=== PATIENT | male | born 1945 ===

== ENCOUNTER 2017-07-29 19:28 | Inpatient (IN) | payer MEDICARE, MEDICAID ==
[2017-07-30 04:39] VITALS: BMI 22.6
[2017-07-30] MEDS ORDERED: Apap-Butalbital-Caffeine 325-50-40mg Tab PO PRN (06:09)
[2017-07-30] MEDS ORDERED: Naproxen 500 MG TAB PO PRN (06:17)
[2017-07-30] MEDS: Apap-Butalbital-Caffeine 325-50-40mg Tab PO PRN ×2 (08:25→15:35)
[2017-07-30] MEDS: Levothyroxine 100 MCG TAB PO SCH (08:27)
[2017-07-30] MEDS: GlipiZIDE 5 mg SR Tab PO SCH (08:27)
[2017-07-30] MEDS: Insulin Regular 100 units/ml SC SCH ×4 (08:28→21:28)
[2017-07-30] MEDS: Multivitamin With Minerals Tab PO SCH (08:29)
[2017-07-30 08:30] LABS: BASO % 0.3 % (0.0-2.0); EOS # 0.6 K/uL (0.0-0.7); EOS % 5.6 % (0.0-4.0); HEMATOCRIT 27.7 % (35.0-51.0); LYMPH # 1.5 K/uL (1.0-4.3); LYMPH % 13.7 % (20.0-40.0); MEAN CELL VOLUME 74.9 fl (80.0-94.0); MEAN CORPUSCULAR HEMOGLOBIN 24.7 pg (27.0-31.0); MEAN PLATELET VOLUME 8.5 fl (7.2-11.7); MONO # 1.2 K/uL (0.0-0.8); MONO % 11.6 % (0.0-10.0); NEUT # 7.4 K/uL (1.8-7.0); NEUT % 68.8 % (50.0-75.0); RED CELL DISTRIBUTION WIDTH 15.7 % (11.5-14.5); WHITE BLOOD COUNT 10.8 K/uL (4.8-10.8)
[2017-07-30] MEDS: Metoprolol Succinate 25 mg XL Tab PO SCH (08:30)
[2017-07-30 08:50] LABS: ALB/GLOB RATIO 1.3 (1.0-2.1); ALKALINE PHOSPHATASE 63 U/L (38-126); ALT/SGPT 30 U/L (21-72); AST/SGOT 18 U/L (17-59); BILIRUBIN,TOTAL 0.6 mg/dl (0.2-1.3); BLOOD UREA NITROGEN 15 mg/dl (9-20); CALCIUM 8.5 mg/dL (8.4-10.2); CARBON DIOXIDE 22 mmol/L (22-30); CHLORIDE 106 mmol/L (98-107); CHOLESTEROL 100 mg/dL (0-199); GFR AFRICAN-AMERICAN > 60; GLUCOSE,RANDOM 150 mg/dL (75-110); POTASSIUM 4.3 MMOL/L (3.6-5.0); SODIUM 139 mmol/l (132-148); TOTAL PROTEIN 6.5 G/DL (6.3-8.2)
[2017-07-30] MEDS ORDERED: Patient's Own Med (Multivitamins [Hexavitamin] 1 TAB) PO SCH (09:00)
[2017-07-30] MEDS ORDERED: Enoxaparin 80 mg Syringe SC SCH (09:00)
[2017-07-30] MEDS ORDERED: LOSARTAN 25 MG PO SCH (09:00)
[2017-07-30] MEDS ORDERED: METFORMIN 1000 MG PO SCH (09:00)
[2017-07-30 09:02] LABS: T4 7.71 ug/dl (5.5-11.0)
[2017-07-30 09:14] LABS: THYROID STIMULATING HORMONE 5.69 mIU/ML (0.46-4.68)
--- NOTE | 2017-07-30 09:15 | CP.PCM.HP ---
History of Present Illness - History of Present Illness History of Present Illness: A 72-year-old male with PMH DM, HTN, hypothyroidism initially presented to [facility] w/ complaints of syncopal episode. Patient was found to have hyperglycemia >400. Initial CT scan was negative. He had an MRI Brain that revealed acute left cerebellar infarctions involving almost entire cerebellar hemisphere with relative sparing of the deep superior cerebellar white matter. EKG: Echocardiogram was done, LV EF was normal. Chest CTA: negative. The patient is admitted for acute rehabilitation. He appears well this morning. 12 point ROS negative PMH: Uncontrolled Diabetes, HTN, HLD, CVA, Anemia Medications: reviewed Allergies: NKDA Social: No smoking, etoh, illicit drug use. Present on Admission - Present on Admission Any Indicators Present on Admission: Yes History of DVT/PE: No History of Uncontrolled Diabetes: Yes Past Patient History - Past Medical History & Family History Past Medical History?: Yes - Past Social History Smoking Status: Never Smoked - CARDIAC Hx Cardiac Disorders: Yes Hx Hypertension: Yes Other/Comment: - Dyslipidemia - PULMONARY Hx Respiratory Disorders: No - NEUROLOGICAL Hx Neurological Disorder: Yes HX Cerebrovascular Accident: Yes (07/23/2017) - HEENT Hx Cataracts: Yes (Bilateral (04/20/2013)) Other/Comment: - Had complaints of double vision - RENAL Hx Chronic Kidney Disease: No - ENDOCRINE/METABOLIC Hx Hypothyroidism: Yes - HEMATOLOGICAL/ONCOLOGICAL Hx AIDS: No Hx Human Immunodeficiency Virus (HIV): No - INTEGUMENTARY Hx Dermatological Problems: No - MUSCULOSKELETAL/RHEUMATOLOGICAL Hx Falls: No - GASTROINTESTINAL Hx Gastrointestinal Disorders: No - GENITOURINARY/GYNECOLOGICAL Hx Genitourinary Disorders: Yes (Phimosis, Circumcision 05/03/2015) - PSYCHIATRIC Hx Substance Use: No - SURGICAL HISTORY Hx Surgeries: Yes Hx Cataract Extraction: Yes ((Bilateral: 04/20/2013)) Other/Comment: - Cir - ANESTHESIA Hx Anesthesia: Yes Hx Anesthesia Reactions: No Hx Malignant Hyperthermia: No Has any member of the family had a problem w/ anesthesia?: No Meds Allergies/Adverse Reactions: Allergies Allergy/AdvReac Type Severity Reaction Status Date / Time No Known Allergies Allergy Verified 07/30/17 04:39 Physical Exam - Constitutional Appears: Well, Non-toxic, No Acute Distress - Head Exam Head Exam: ATRAUMATIC, NORMAL INSPECTION, NORMOCEPHALIC - Eye Exam Eye Exam: EOMI, Normal appearance, PERRL - Respiratory Exam Respiratory Exam: NORMAL BREATHING PATTERN - Cardiovascular Exam Cardiovascular Exam: REGULAR RHYTHM - Extremities Exam Extremities exam: Positive for: normal inspection. Negative for: pedal edema, tenderness - Neurological Exam Neurological exam: Alert, CN II-XII Intact, Oriented x3 Additional comments: gait not assessed - Expanded Neurological Exam Expanded Neuro motor strength exam: Left Upper Extremity: 5, Right Upper Extremity: 5, Left Lower Extremity: 5, Right Lower Extremity: 5 Coma Scale Eye Opening: SPONTANEOUS Coma Scale Motor Response: OBEYS COMMANDS Coma Scale Verbal: Oriented Coma Scale Total: 15 - Psychiatric Exam Psychiatric exam: Normal Affect, Normal Mood - Skin Skin Exam: Dry, Intact, Normal Color, Warm Results - Vital Signs Recent Vital Signs: Last Vital Signs Temp 96.6 F L 07/30/17 07:47 Pulse 69 07/30/17 08:30 Resp 20 07/30/17 07:47 BP 140/72 07/30/17 08:30 Pulse Ox 98 07/30/17 07:47 - Labs Result Diagrams: 07/30/17 08:10 07/30/17 08:10 Labs: Laboratory Results - last 24 hr 07/30/17 07/30/17 08:10 08:10 WBC 10.8 RBC 3.70 L Hgb 9.1 L Hct 27.7 L MCV 74.9 L MCH 24.7 L MCHC 33.0 RDW 15.7 H Plt Count 325 MPV 8.5 Neut % (Auto) 68.8 Lymph % (Auto) 13.7 L [place] % (Auto) 11.6 H Eos % (Auto) 5.6 H Baso % (Auto) 0.3 Neut # 7.4 H Lymph # 1.5 [place] # 1.2 H Eos # 0.6 Baso # 0.0 Sodium 139 Potassium 4.3 Chloride 106 Carbon Dioxide 22 Anion Gap 15 BUN 15 Creatinine 1.1 Est GFR ( Amer) > 60 Est GFR (Non-Af Amer) > 60 Random Glucose 150 H Calcium 8.5 Total Bilirubin 0.6 AST 18 ALT 30 Alkaline Phosphatase 63 Total Protein 6.5 Albumin 3.7 Globulin 2.8 Albumin/Globulin Ratio 1.3 Triglycerides 205 H Cholesterol 100 LDL Cholesterol Direct 41 HDL Cholesterol 25 L Thyroxine (T4) 7.71 Total T3 0.520 L TSH 3rd Generation 5.69 H Assessment & Plan (1) CVA (cerebral vascular accident) Assessment and Plan: 72 year old male admitted for rehabilitation after suffering CVA, left cerebellar infarction. Neurology recommendations appreciated. on ASA, Plavix, will start Lipitor 80mg. PT/OT as per physiatry. Status: Acute (2) HTN (hypertension) Assessment and Plan: mostly controlled, d/c losartan 25mg start losartan 50mg c/w norvasc 10mg, metoprolol 25mg Status: Acute (3) Insulin dependent type 2 diabetes mellitus Assessment and Plan: on 30 units glargine qhs, metformin 1000mg bid, glucoctrol xl 5 mg sliding scale for coverage if remains hyperglycemic will need to increase glargine Status: Acute (4) HLD (hyperlipidemia) Assessment and Plan: lipitor 80mg Status: Acute (5) Microcytic anemia Assessment and Plan: chronic, patients initial hg was 9. has been stable. iron studies ordered Vitamin b12 WNL Folate pending TSH elevated Status: Acute
--- NOTE | 2017-07-30 12:03 | CP.PCM.CON ---
History of Present Illness - History of Present Illness History of Present Illness: I was asked to see patient by Dr Fried. Patient is a 72 year old male with PMH HTN, who presents for rehab. The patient was previously admitted with a CVA. The patient was noted to have lack of coordination. He was admitted to [facility] and now transferred. He denies chest pain. He appears comfortable. Review of Systems - Constitutional Constitutional: absent: As Per HPI, Anorexia, Chills, Daytime Sleepiness, Excessive Sweating, Fatigue, Fever, Frequent Falls, Headache, Increased Appetite , Lethargy, Malaise, Night Sweats, Snoring, Sleep Apnea, Weight Gain, Weight Loss, Weakness, Other - EENT Eyes: absent: As Per HPI, Blind Spots, Blurred Vision, Change in Vision, Decreased Night Vision, Diplopia, Discharge, Dry Eye, Exophthalmos, Floaters, Irritation, Itchy Eyes, Loss of Peripheral Vision, Pain, Photophobia, Requires Corrective Lenses, Sees Flashes, Spots in Vision, Tunnel Vision, Other Visual Disturbances, Loss of Vision, Other Nose/Mouth/Throat: absent: As Per HPI, Epistaxis, Nasal Congestion, Nasal Discharge, Nasal Obstruction, Nasal Trauma, Nose Pain, Post Nasal Drip, Sinus Pain, Sinus Pressure, Bleeding Gums, Change in Voice, Dental Pain, Dry Mouth, Dysphagia, Halitosis, Hoarsness, Lip Swelling, Mouth Lesions, Mouth Pain, Odynophagia, Sore Throat, Throat Swelling, Tongue Swelling, Facial Pain, Neck Pain, Neck Mass, Other - Cardiovascular Cardiovascular: absent: As Per HPI, Acrocyanosis, Chest Pain, Chest Pain at Rest , Chest Pain with Activity, Claudication, Diaphoresis, Dyspnea, Dyspnea on Exertion, Edema, Irregular Heart Rhythm, Pain Radiating to Arm/Neck/Jaw, Leg Edema, Leg Ulcers, Lightheadedness, Orthopnea, Palpitations, Paroxysmal Nocturnal Dyspnea, Pedal Edema, Radiating Pain, Rapid Heart Rate, Slow Heart Rate, Syncope, Other - Respiratory Respiratory: absent: As Per HPI, Cough, Dyspnea, Hemoptysis, Dyspnea on Exertion , Wheezing, Snoring, Stridor, Pain on Inspiration, Chest Congestion, Excessive Mucous Production, Change in Mucous Color, Pain with Coughing, Other - Gastrointestinal Gastrointestinal: absent: As Per HPI, Abdominal Pain, Belching, Bloating, Change in Bowel Habits, Change in Stool Character, Coffee Ground Emesis, Constipation, Cramping, Diarrhea, Dyspepsia, Dysphagia, Early Satiety, Excessive Flatus, Fecal Incontinence, Heartburn, Hematemesis, Hematochezia, Loose Stools, Melena, Nausea, Odynophagia, Temesmus, Vomiting, Other - Genitourinary Genitourinary: absent: As Per HPI, Change in Urinary Stream, Difficulty Urinating, Dysuria, Flank Pain, Hematuria, Pyuria, Nocturia, Urinary Incontinence, Urinary Frequency, Urinary Hesitance, Urinary Urgency, Voiding Freq/Small Amts, Freq UTI, Hx Renal/Bladder Calculi, Hx /Renal Surgery, Bladder Distension, Other - Musculoskeletal Musculoskeletal: absent: As Per HPI, Abnormal Gait, Arthralgias, Atrophy, Back Pain, Deformity, Joint Swelling, Limited Range of Motion, Loss of Height, Muscle Cramps, Muscle Weakness, Myalgias, Neck Pain, Numbness, Radiating Pain into Limb, Stiffness, Tingling, Other - Integumentary Integumentary: absent: As Per HPI, Acne, Alopecia, Bleeding Lesions, Change in Hair, Change in Nails, Change in Pigmentation, Changing Lesions, Dry Skin, Erythema, Furuncle, Hirsutism, Lesions, New Lesions, Non-Healing Lesions, Photosensitivity, Pruritus, Rash, Skin Pain, Skin Ulcer, Sores, Striae, Swelling , Unusual Bruising, Wounds, Jaundice, Other - Neurological Neurological: Lack of Coordination - Psychiatric Psychiatric: absent: As Per HPI, Abnormal Sleep Pattern, Anhedonia, Anxiety, Auditory Hallucinations, Behavioral Changes, Change in Appetite, Change in Libido, Confusion, Depression, Difficulty Concentrating, Hallucinations, Homicidal Ideation, Hopelessness, Irritability, Memory Loss, Mood Swings, Panic Attacks, Paranoia, Suicidal Ideation, Visual Hallucinations, Tactile Hallucinations, Other - Endocrine Endocrine: absent: As Per HPI, Change in Body Appearance, Change in Libido, Cold Intolorance, Deepening of Voice, Excessive Sweating, Fatigue, Flushing, Heat Intolorance, Increase in Ring/Shoe/Hat Size, Palpitations, Polydipsia, Polyphagia, Polyuria, Other - Hematologic/Lymphatic Hematologic: absent: As Per HPI, Easy Bleeding, Easy Bruising, Lymphadenopathy, Other Past Patient History - Past Medical History & Family History Past Medical History?: Yes - Past Social History Smoking Status: Never Smoked - CARDIAC Hx Cardiac Disorders: Yes Hx Hypertension: Yes Other/Comment: - Dyslipidemia - PULMONARY Hx Respiratory Disorders: No - NEUROLOGICAL Hx Neurological Disorder: Yes HX Cerebrovascular Accident: Yes (07/23/2017) - HEENT Hx Cataracts: Yes (Bilateral (04/20/2013)) Other/Comment: - Had complaints of double vision - RENAL Hx Chronic Kidney Disease: No - ENDOCRINE/METABOLIC Hx Hypothyroidism: Yes - HEMATOLOGICAL/ONCOLOGICAL Hx AIDS: No Hx Human Immunodeficiency Virus (HIV): No - INTEGUMENTARY Hx Dermatological Problems: No - MUSCULOSKELETAL/RHEUMATOLOGICAL Hx Falls: No - GASTROINTESTINAL Hx Gastrointestinal Disorders: No - GENITOURINARY/GYNECOLOGICAL Hx Genitourinary Disorders: Yes (Phimosis, Circumcision 05/03/2015) - PSYCHIATRIC Hx Substance Use: No - SURGICAL HISTORY Hx Surgeries: Yes Hx Cataract Extraction: Yes ((Bilateral: 04/20/2013)) Other/Comment: - Cir - ANESTHESIA Hx Anesthesia: Yes Hx Anesthesia Reactions: No Hx Malignant Hyperthermia: No Has any member of the family had a problem w/ anesthesia?: No Meds Allergies/Adverse Reactions: Allergies Allergy/AdvReac Type Severity Reaction Status Date / Time No Known Allergies Allergy Verified 07/30/17 04:39 - Medications Medications: Current Medications Acetaminophen/Butalbital/Caffeine (Fioricet) 1 tab PO Q4 PRN PRN Reason: Pain (4-10) Last Admin: 07/30/17 08:25 Dose: 1 tab Alendronate Sodium (Fosamax) 70 mg PO QWK [facility] Amlodipine Besylate (Norvasc) 10 mg PO DAILY [facility] Last Admin: 07/30/17 08:30 Dose: 10 mg Aspirin (Aspirin Chewable) 81 mg PO DAILY [facility] Last Admin: 07/30/17 08:29 Dose: 81 mg Atorvastatin Calcium (Lipitor) 40 mg PO HS [facility] Clopidogrel Bisulfate (Plavix) 75 mg PO DAILY [facility] Last Admin: 07/30/17 08:29 Dose: 75 mg Enoxaparin Sodium (Lovenox) 70 mg SC Q12 [facility] PRN Reason: Protocol Famotidine (Pepcid) 20 mg PO BID [facility] Last Admin: 07/30/17 08:29 Dose: 20 mg Glipizide (Glucotrol Xl) 5 mg PO BRK [facility] Last Admin: 07/30/17 08:27 Dose: 5 mg Insulin Detemir (Levemir) 30 units SC [facility] Insulin Human Regular (Humulin R) 0 units SC [facility] PRN Reason: Protocol Last Admin: 07/30/17 08:28 Dose: 1 unit Levothyroxine Sodium (Synthroid) 100 mcg PO DAILY@0630 [facility] Last Admin: 07/30/17 08:27 Dose: 100 mcg Losartan Potassium (Cozaar) 25 mg PO DAILY [facility] Last Admin: 07/30/17 08:29 Dose: 25 mg Meclizine HCl (Antivert) 25 mg PO TID [facility] Last Admin: 07/30/17 08:27 Dose: 25 mg Metformin HCl (Glucophage) 1,000 mg PO BID [facility] Last Admin: 07/30/17 08:29 Dose: 1,000 mg Metoprolol Succinate (Toprol Xl) 25 mg PO DAILY [facility] Last Admin: 07/30/17 08:30 Dose: 25 mg Multivitamins/Minerals (Therapeutic-M Tab) 1 tab PO DAILY [facility] Last Admin: 07/30/17 08:29 Dose: 1 tab Physical Exam - Constitutional Appears: Non-toxic - Head Exam Head Exam: NORMAL INSPECTION - Eye Exam Eye Exam: Normal appearance - ENT Exam ENT Exam: Mucous Membranes Moist - Neck Exam Neck exam: Positive for: Full Rom - Respiratory Exam Respiratory Exam: NORMAL BREATHING PATTERN - Cardiovascular Exam Cardiovascular Exam: REGULAR RHYTHM - GI/Abdominal Exam GI & Abdominal Exam: Normal Bowel Sounds - Rectal Exam Rectal Exam: Deferred - Extremities Exam Extremities exam: Negative for: pedal edema - Back Exam Back exam: NORMAL INSPECTION - Neurological Exam Neurological exam: Alert, Oriented x3 - Psychiatric Exam Psychiatric exam: Normal Affect - Skin Skin Exam: Normal Color Results - Vital Signs Recent Vital Signs: Last Vital Signs Temp 96.6 F L 07/30/17 07:47 Pulse 69 07/30/17 08:30 Resp 20 07/30/17 07:47 BP 140/72 07/30/17 08:30 Pulse Ox 98 07/30/17 07:47 - Labs Result Diagrams: 07/30/17 08:10 07/30/17 08:10 Labs: Laboratory Results - last 24 hr 07/30/17 07/30/17 07/30/17 05:29 08:10 08:10 WBC 10.8 RBC 3.70 L Hgb 9.1 L Hct 27.7 L MCV 74.9 L MCH 24.7 L MCHC 33.0 RDW 15.7 H Plt Count 325 MPV 8.5 Neut % (Auto) 68.8 Lymph % (Auto) 13.7 L [place] % (Auto) 11.6 H Eos % (Auto) 5.6 H Baso % (Auto) 0.3 Neut # 7.4 H Lymph # 1.5 [place] # 1.2 H Eos # 0.6 Baso # 0.0 Sodium 139 Potassium 4.3 Chloride 106 Carbon Dioxide 22 Anion Gap 15 BUN 15 Creatinine 1.1 Est GFR ( Amer) > 60 Est GFR (Non-Af Amer) > 60 POC Glucose (mg/dL) 160 H Random Glucose 150 H Calcium 8.5 Total Bilirubin 0.6 AST 18 ALT 30 Alkaline Phosphatase 63 Total Protein 6.5 Albumin 3.7 Globulin 2.8 Albumin/Globulin Ratio 1.3 Triglycerides 205 H Cholesterol 100 LDL Cholesterol Direct 41 HDL Cholesterol 25 L Vitamin B12 548 Thyroxine (T4) 7.71 Total T3 0.520 L TSH 3rd Generation 5.69 H 07/30/17 11:08 WBC RBC Hgb Hct MCV MCH MCHC RDW Plt Count MPV Neut % (Auto) Lymph % (Auto) [place] % (Auto) Eos % (Auto) Baso % (Auto) Neut # Lymph # [place] # Eos # Baso # Sodium Potassium Chloride Carbon Dioxide Anion Gap BUN Creatinine Est GFR ( Amer) Est GFR (Non-Af Amer) POC Glucose (mg/dL) 264 H Random Glucose Calcium Total Bilirubin AST ALT Alkaline Phosphatase Total Protein Albumin Globulin Albumin/Globulin Ratio Triglycerides Cholesterol LDL Cholesterol Direct HDL Cholesterol Vitamin B12 Thyroxine (T4) Total T3 TSH 3rd Generation - EKG Data EKG shows normal: Sinus rhythm - EKG Data When Compared to Previous EKG: Significant Changes Assessment & Plan (1) CVA (cerebral vascular accident) Assessment and Plan: patient will need continued physical therapy. recommend statin therapy. ASA. awilda follow up. no signs of afib. Status: Acute (2) Syncope Status: Acute
[2017-07-30] MEDS: Enoxaparin 80 mg Syringe SC SCH ×2 (12:19→21:18)
--- NOTE | 2017-07-30 15:32 | CON ---
NEUROLOGY CONSULTATION DATE: 07/30/2017 HISTORY OF PRESENT ILLNESS: This is a 72-year-old man with history of type 2 diabetes mellitus, uncontrolled; hypertension and hypothyroidism who initially came into [facility] on 07/23/2017, where he was shopping at [facility] and had a syncopal episode and found to have Accu-Chek of more than 400 on his blood sugar. Initial CAT scan showed no acute intracranial abnormality and started to have diffuse pressure headaches with blurry vision; therefore, had an MRI of the brain, which showed an acute left cerebellar infarct, which is likely secondary to diffuse atherosclerotic disease with uncontrolled diabetes and hypertension. He had some mild dysmetria and his headaches got better with Fioricet p.r.n. He is on aspirin 81, Plavix 75, and Lipitor 80. He is currently in [facility] for acute rehab for physical and occupational therapy. PAST MEDICAL HISTORY: Type 2 diabetes mellitus, hypertension and dyslipidemia. REVIEW OF SYSTEMS: A 14-point review of systems is negative except in the HPI. ALLERGIES: NO KNOWN DRUG ALLERGY. SOCIAL HISTORY: No illicit drug use, smoking, or ETOH abuse. FAMILY HISTORY: Noncontributory. MEDICATIONS: Reviewed by nurse's reconciliation sheet. PHYSICAL EXAMINATION VITAL SIGNS: Temperature 96.6, pulse rate of 69, blood pressure 140/72, respiratory rate of 20, oxygen saturation 98% by room air. GENERAL: The patient is sitting up in bed, in no acute distress. HEENT: Head is atraumatic and normocephalic. PERRLA. Extraocular muscles intact. NECK: Supple. No JVD. No adenopathy noted. LUNGS: Clear to auscultation. No adventitious sounds. HEART: S1, S2. Normal rate and rhythm. No murmurs, rubs, or gallops. ABDOMEN: Soft, nontender, nondistended. Bowel sounds are present. EXTREMITIES: No clubbing, no cyanosis. Peripheral pulses 2+ felt bilaterally. NEUROLOGIC: The patient is alert and oriented to person, place, month, and year. Speech is fluent without any errors. Cranial nerves II through XII are intact. Motor exam: Moves all extremities equally. Normal toes. No pronator drift seen. Sensory exam: Decreased light touch and pinprick up to the calves bilaterally. Decreased vibration at the toes. DTRs are 2+ throughout, 1 at the ankles. Coordination: Mild dysmetria on the left upper extremities. [id number] otherwise intact. Gait is deferred for now. LABORATORY DATA: Sodium is 139, potassium 4.3, chloride of 106, carbon dioxide 22, BUN of 15, creatinine 1.1 and random glucose of 150 and his B12 on his last hospital visit which shows 548. ASSESSMENT AND PLAN: This is a 72-year-old [place] male with past medical history of type 2 diabetes mellitus, uncontrolled; dyslipidemia, hypertension, and had a syncopal episode on 07/23/2017, when he was brought to [facility] and developed pressure headaches and blurry vision. Had an MRI of the brain, which showed acute left cerebellar infarct with mass effect from diffuse atherosclerotic disease such as uncontrolled hypertension, diabetes and dyslipidemia and he had a syncopal episode which is most likely vasovagal at that time, so far there is no features of any atrial fibrillation on his EKG. He is currently stable, he is at [facility] for acute rehab for physical therapy and muscle strengthening exercise. At this time, we recommend: 1. Keep blood pressure between 120 to 130 mmHg. 2. Aspirin 81 mg, Plavix 75 mg in addition to Lipitor 80 mg p.o. daily for stroke prevention. 3. Acute rehab with physical and occupational, speech therapy for deconditioned state, balance and coordination and muscle exercises. 4. Continue with current present medical management and get hemoglobin A1c and keep blood sugars between 140 to 180 and diabetic diet. Thank you for this consult. Nasim Watts MD
--- NOTE | 2017-07-30 18:00 | PCM.OPOC ---
Physiatry Overall Plan of Care - Overall Plan of Care Estimated Length of Stay in Weeks: 3 Rehab Impairment: Mobility, Gait, Cognition, Speech, Balance, Coordination Etiologic Diagnosis: Cerebrovascular Accident Rehab/Medical Prognosis: Fair - Anticipated Interventions Physical Therapy:: Yes Occupational Therapy:: Yes Speech Therapy:: Yes Recreational Therapy:: Yes - Therapy Goals Bed Mobility: Supervision Ambulation: Supervision Functional Positional Changes:: Supervision - Discharge Plan Discharge Destination: Home
--- NOTE | 2017-07-30 18:03 | CP.PCM.CON ---
History of Present Illness - History of Present Illness History of Present Illness: Dr Mcdaniels PMR consultation on Azeem Jenkins, born 1945, who has been admitted to [facility] for acute inpatient rehabilitation after a syncopal event with work up revealing a cerebellar infarct. Decreased coordination and function. Review of Systems - Constitutional Constitutional: absent: Anorexia, Chills - EENT Eyes: absent: Change in Vision Ears: absent: Decreased Hearing, Ear Discharge Nose/Mouth/Throat: absent: Nasal Congestion - Cardiovascular Cardiovascular: absent: Chest Pain - Respiratory Respiratory: absent: Cough, Dyspnea - Gastrointestinal Gastrointestinal: absent: Belching, Constipation - Musculoskeletal Musculoskeletal: absent: Back Pain - Neurological Neurological: Abnormal Gait, Abnormal Speech. absent: Abnormal Hearing, Abnormal Movements Past Patient History - Past Medical History & Family History Past Medical History?: Yes - Past Social History Smoking Status: Never Smoked Alcohol: None Drugs: Denies Home Situation {Lives}: With Family - CARDIAC Hx Hypertension: Yes - PULMONARY Hx Respiratory Disorders: No - NEUROLOGICAL Hx Neurological Disorder: Yes HX Cerebrovascular Accident: Yes (07/23/2017) - HEENT Hx Cataracts: Yes (Bilateral (04/20/2013)) Other/Comment: - Had complaints of double vision - RENAL Hx Chronic Kidney Disease: No - ENDOCRINE/METABOLIC Hx Diabetes Mellitus Type 2: Yes - HEMATOLOGICAL/ONCOLOGICAL Hx AIDS: No Hx Human Immunodeficiency Virus (HIV): No - INTEGUMENTARY Hx Dermatological Problems: No - MUSCULOSKELETAL/RHEUMATOLOGICAL Hx Falls: No - GASTROINTESTINAL Hx Gastrointestinal Disorders: No - GENITOURINARY/GYNECOLOGICAL Hx Genitourinary Disorders: Yes (Phimosis, Circumcision 05/03/2015) - PSYCHIATRIC Hx Substance Use: No - SURGICAL HISTORY Hx Surgeries: Yes Hx Cataract Extraction: Yes ((Bilateral: 04/20/2013)) Other/Comment: - Cir - ANESTHESIA Hx Anesthesia: Yes Hx Anesthesia Reactions: No Hx Malignant Hyperthermia: No Has any member of the family had a problem w/ anesthesia?: No Meds Allergies/Adverse Reactions: Allergies Allergy/AdvReac Type Severity Reaction Status Date / Time No Known Allergies Allergy Verified 07/30/17 04:39 - Medications Medications: Current Medications Acetaminophen (Tylenol 325mg Tab) 650 mg PO Q6 PRN PRN Reason: Ear Pain. Acetaminophen/Butalbital/Caffeine (Fioricet) 1 tab PO Q4 PRN PRN Reason: Pain (4-10) Last Admin: 07/30/17 15:35 Dose: 1 tab Alendronate Sodium (Fosamax) 70 mg PO QWK [facility] Amlodipine Besylate (Norvasc) 10 mg PO DAILY [facility] Last Admin: 07/30/17 08:30 Dose: 10 mg Aspirin (Aspirin Chewable) 81 mg PO DAILY [facility] Last Admin: 07/30/17 08:29 Dose: 81 mg Atorvastatin Calcium (Lipitor) 80 mg PO DAILY [facility] Clopidogrel Bisulfate (Plavix) 75 mg PO DAILY [facility] Last Admin: 07/30/17 08:29 Dose: 75 mg Enoxaparin Sodium (Lovenox) 70 mg SC Q12 [facility] PRN Reason: Protocol Last Admin: 07/30/17 12:19 Dose: 70 mg Famotidine (Pepcid) 20 mg PO BID [facility] Last Admin: 07/30/17 17:06 Dose: 20 mg Glipizide (Glucotrol Xl) 5 mg PO BRK [facility] Last Admin: 07/30/17 08:27 Dose: 5 mg Insulin Detemir (Levemir) 30 units SC HS [facility] Insulin Human Regular (Humulin R) 0 units SC [facility] PRN Reason: Protocol Last Admin: 07/30/17 17:06 Dose: 1 unit Levothyroxine Sodium (Synthroid) 100 mcg PO DAILY@0630 [facility] Last Admin: 07/30/17 08:27 Dose: 100 mcg Losartan Potassium (Cozaar) 50 mg PO DAILY [facility] Meclizine HCl (Antivert) 25 mg PO TID [facility] Last Admin: 07/30/17 17:06 Dose: 25 mg Metformin HCl (Glucophage) 1,000 mg PO BID [facility] Last Admin: 07/30/17 17:06 Dose: 1,000 mg Metoprolol Succinate (Toprol Xl) 25 mg PO DAILY [facility] Last Admin: 07/30/17 08:30 Dose: 25 mg Multivitamins/Minerals (Therapeutic-M Tab) 1 tab PO DAILY [facility] Last Admin: 07/30/17 08:29 Dose: 1 tab Physical Exam - Constitutional Appears: Well, Non-toxic, No Acute Distress - Head Exam Head Exam: ATRAUMATIC, NORMAL INSPECTION, NORMOCEPHALIC - Eye Exam Eye Exam: EOMI - ENT Exam ENT Exam: Mucous Membranes Moist - Respiratory Exam Respiratory Exam: NORMAL BREATHING PATTERN - Cardiovascular Exam Cardiovascular Exam: REGULAR RHYTHM - GI/Abdominal Exam GI & Abdominal Exam: Normal Bowel Sounds - Extremities Exam Extremities exam: Negative for: calf tenderness - Neurological Exam Neurological exam: Alert - Psychiatric Exam Psychiatric exam: Normal Affect, Normal Mood - Skin Skin Exam: Normal Color Results - Vital Signs Recent Vital Signs: Last Vital Signs Temp 96.6 F L 07/30/17 07:47 Pulse 83 07/30/17 09:10 Resp 20 07/30/17 07:47 BP 118/69 07/30/17 09:10 Pulse Ox 98 07/30/17 07:47 - Labs Result Diagrams: 07/30/17 08:10 07/30/17 08:10 Labs: Laboratory Results - last 24 hr 07/30/17 07/30/17 07/30/17 05:29 08:10 08:10 WBC 10.8 RBC 3.70 L Hgb 9.1 L Hct 27.7 L MCV 74.9 L MCH 24.7 L MCHC 33.0 RDW 15.7 H Plt Count 325 MPV 8.5 Neut % (Auto) 68.8 Lymph % (Auto) 13.7 L Daggett % (Auto) 11.6 H Eos % (Auto) 5.6 H Baso % (Auto) 0.3 Neut # 7.4 H Lymph # 1.5 Daggett # 1.2 H Eos # 0.6 Baso # 0.0 Sodium 139 Potassium 4.3 Chloride 106 Carbon Dioxide 22 Anion Gap 15 BUN 15 Creatinine 1.1 Est GFR ( Amer) > 60 Est GFR (Non-Af Amer) > 60 POC Glucose (mg/dL) 160 H Random Glucose 150 H Calcium 8.5 Total Bilirubin 0.6 AST 18 ALT 30 Alkaline Phosphatase 63 Total Protein 6.5 Albumin 3.7 Globulin 2.8 Albumin/Globulin Ratio 1.3 Triglycerides 205 H Cholesterol 100 LDL Cholesterol Direct 41 HDL Cholesterol 25 L Vitamin B12 548 Thyroxine (T4) 7.71 Total T3 0.520 L TSH 3rd Generation 5.69 H 07/30/17 07/30/17 11:08 15:50 WBC RBC Hgb Hct MCV MCH MCHC RDW Plt Count MPV Neut % (Auto) Lymph % (Auto) Daggett % (Auto) Eos % (Auto) Baso % (Auto) Neut # Lymph # Daggett # Eos # Baso # Sodium Potassium Chloride Carbon Dioxide Anion Gap BUN Creatinine Est GFR ( Amer) Est GFR (Non-Af Amer) POC Glucose (mg/dL) 264 H 198 H Random Glucose Calcium Total Bilirubin AST ALT Alkaline Phosphatase Total Protein Albumin Globulin Albumin/Globulin Ratio Triglycerides Cholesterol LDL Cholesterol Direct HDL Cholesterol Vitamin B12 Thyroxine (T4) Total T3 TSH 3rd Generation Assessment & Plan - Assessment and Plan (Free Text) Assessment: 72 year old male right hand dominant with acute cerebellar CVA PT/OT to continue to help increase functional independence Team conference for d/c planning Pain: controlled Vascular: no evidence of DVT GI: No evidence of constipation or diarrhea Patient is an excellent acute rehabilitation candidate and will have focused speech PT, OT and recreational therapy to help facilitate a safe and appropriate d/c plan Impairment code 01.2
[2017-07-30] MEDS: Insulin Detemir 100 Units/ml Inj SC SCH (21:22)
--- NOTE | 2017-07-31 00:42 | CP.PCM.PN ---
Subjective - Date & Time of Evaluation Date of Evaluation: 07/31/17 Time of Evaluation: 00:45 - Subjective Subjective: Called to eval patient because he had been heard getting up and then found on the floor by the nurse soon after. Patient did not have LOC. There do not appear to be any new bruising/bleeding although LLE has some injuries from prior fall. Patient himself denies any pain/discomfort. VSS. No acute neuro deficits. Will observe patient for now. No further workup ordered. Objective - Vital Signs/Intake and Output Vital Signs (last 24 hours): Temp Pulse Resp BP Pulse Ox 97.9 F 71 20 139/76 98 07/30/17 19:47 07/30/17 19:47 07/30/17 19:47 07/30/17 19:47 07/30/17 19:47 - Medications Medications: Current Medications Acetaminophen (Tylenol 325mg Tab) 650 mg PO Q6 PRN PRN Reason: Ear Pain. Acetaminophen/Butalbital/Caffeine (Fioricet) 1 tab PO Q4 PRN PRN Reason: Pain (4-10) Last Admin: 07/30/17 15:35 Dose: 1 tab Alendronate Sodium (Fosamax) 70 mg PO QWK [facility]PLACED [facility] Amlodipine Besylate (Norvasc) 10 mg PO DAILY [facility] Last Admin: 07/30/17 08:30 Dose: 10 mg Aspirin (Aspirin Chewable) 81 mg PO DAILY [facility] Last Admin: 07/30/17 08:29 Dose: 81 mg Atorvastatin Calcium (Lipitor) 80 mg PO DAILY [facility] Clopidogrel Bisulfate (Plavix) 75 mg PO DAILY [facility] Last Admin: 07/30/17 08:29 Dose: 75 mg Enoxaparin Sodium (Lovenox) 70 mg SC Q12 [facility] PRN Reason: Protocol Last Admin: 07/30/17 21:18 Dose: 70 mg Famotidine (Pepcid) 20 mg PO BID [facility] Last Admin: 07/30/17 17:06 Dose: 20 mg Glipizide (Glucotrol Xl) 5 mg PO BRK [facility] Last Admin: 07/30/17 08:27 Dose: 5 mg Insulin Detemir (Levemir) 30 units SC HS [facility]PL[facility] Last Admin: 07/30/17 21:22 Dose: 30 units Insulin Human Regular (Humulin R) 0 units SC ACHS REPLACED BY [facility] PRN Reason: Protocol Last Admin: 07/30/17 21:28 Dose: Not Given Levothyroxine Sodium (Synthroid) 100 mcg PO DAILY@0630 [facility] Last Admin: 07/30/17 08:27 Dose: 100 mcg Losartan Potassium (Cozaar) 50 mg PO DAILY [facility] Meclizine HCl (Antivert) 25 mg PO TID [facility] Last Admin: 07/30/17 17:06 Dose: 25 mg Metformin HCl (Glucophage) 1,000 mg PO BID [facility] Last Admin: 07/30/17 17:06 Dose: 1,000 mg Metoprolol Succinate (Toprol Xl) 25 mg PO DAILY [facility] Last Admin: 07/30/17 08:30 Dose: 25 mg Multivitamins/Minerals (Therapeutic-M Tab) 1 tab PO DAILY [facility] Last Admin: 07/30/17 08:29 Dose: 1 tab - Labs Labs: 07/30/17 08:10 07/30/17 08:10
[2017-07-31] MEDS: Levothyroxine 100 MCG TAB PO SCH (06:25)
[2017-07-31] MEDS ORDERED: ALENDRONATE 70 MG TAB PO SCH (06:30)
[2017-07-31] MEDS: Insulin Regular 100 units/ml SC SCH ×4 (06:59→21:00)
[2017-07-31 07:06] LABS: HEMATOCRIT 28.6 % (35.0-51.0); MEAN CORPUSCULAR HEMOGLOBIN 24.4 pg (27.0-31.0); MEAN CORPUSCULAR HGB CONC 32.6 g/dL (33.0-37.0); RED CELL DISTRIBUTION WIDTH 15.8 % (11.5-14.5); WHITE BLOOD COUNT 12.7 K/uL (4.8-10.8)
[2017-07-31] MEDS ORDERED: Levothyroxine 112 MCG TAB PO SCH (07:45)
[2017-07-31] MEDS: GlipiZIDE 5 mg SR Tab PO SCH (08:19)
[2017-07-31] MEDS: Multivitamin With Minerals Tab PO SCH (08:19)
[2017-07-31] MEDS: Enoxaparin 80 mg Syringe SC SCH ×2 (08:19→21:52)
[2017-07-31] MEDS: Metoprolol Succinate 25 mg XL Tab PO SCH (08:20)
--- NOTE | 2017-07-31 09:57 | CP.PCM.CON ---
History of Present Illness - History of Present Illness History of Present Illness: Psychiatry Consult History obtained from the patient, his and the chart. Patient spoken to using case preparer and liner. CC: "I'm dizzy." HPI: 72-year-old male with PMH DM, HTN, hypothyroidism initially presented to [facility] w/ complaints of syncopal episode. Patient was found to have hyperglycemia >400. Initial CT scan was negative. He had an MRI Brain that revealed acute left cerebellar infarctions involving almost entire cerebellar hemisphere with relative sparing of the deep superior cerebellar white matter. EKG: Echocardiogram was done, LV EF was normal. Chest CTA: negative. The patient is admitted for acute rehabilitation. Psychiatry consult called because the patient has periods of agitation and confusion. At the time of the evaluate, the patient is calm/cooperative and falling asleep during the interview. He denies psychiatric complaints, no depression/anxiety/hallucinations/delusions. Patient A + O x self, location, Jul. As per the patient's , he does get irritable sometimes when he does not get what he wants. She reports that he has had periods of confusion at home and seems to have memory loss. PPHx: No past psychiatric history PMH: Uncontrolled Diabetes, HTN, HLD, CVA, Anemia Allergies: NKDA Social: No smoking, etoh, illicit drug use. MSE: Sleepy, falling asleep during the interview. Calm/cooperative, speech normal, good eye contact when awake, A + O x self, location, Aug 12, 2017. Mood neutral, affect neutral, no hallucinations, no delusions, thought process- coherent, thought content no delusions, no SI/HI. Limited I/J due to likely cognitive impairment. Impression: 72 yo male w/ DM, HTN, hypothryoidism, s/p CVA w/ periods of irritability and confusion, likely secondary to neurocognitive impairment vs periods of acute delirium; no acute psychiatric complaints at this time. -For acute agitation, can give Risperdal M tab 0.5 mg PO Q12 PRN agitation; if IM medication is needed can give Haldol 0.5 mg PO Q12 HR PRN agitation -Avoid benzodiazepines as they can worsen confusion and increase risk of falls -No acute inpatient psychiatric admission indicated at this time -Psychology consult to evaluate neurocognitive function; patient likely has dementia Past Patient History - Past Medical History & Family History Past Medical History?: Yes - Past Social History Smoking Status: Never Smoked - CARDIAC Hx Cardiac Disorders: Yes Hx Hypertension: Yes Other/Comment: - Dyslipidemia - PULMONARY Hx Respiratory Disorders: No - NEUROLOGICAL Hx Neurological Disorder: Yes HX Cerebrovascular Accident: Yes (07/23/2017) - HEENT Hx Cataracts: Yes (Bilateral (04/20/2013)) Other/Comment: - Had complaints of double vision - RENAL Hx Chronic Kidney Disease: No - ENDOCRINE/METABOLIC Hx Hypothyroidism: Yes - HEMATOLOGICAL/ONCOLOGICAL Hx AIDS: No Hx Human Immunodeficiency Virus (HIV): No - INTEGUMENTARY Hx Dermatological Problems: No - MUSCULOSKELETAL/RHEUMATOLOGICAL Hx Falls: No - GASTROINTESTINAL Hx Gastrointestinal Disorders: No - GENITOURINARY/GYNECOLOGICAL Hx Genitourinary Disorders: Yes (Phimosis, Circumcision 05/03/2015) - PSYCHIATRIC Hx Substance Use: No - SURGICAL HISTORY Hx Surgeries: Yes Hx Cataract Extraction: Yes ((Bilateral: 04/20/2013)) Other/Comment: - Cir - ANESTHESIA Hx Anesthesia: Yes Hx Anesthesia Reactions: No Hx Malignant Hyperthermia: No Has any member of the family had a problem w/ anesthesia?: No Meds Allergies/Adverse Reactions: Allergies Allergy/AdvReac Type Severity Reaction Status Date / Time No Known Allergies Allergy Verified 07/30/17 04:39 - Medications Medications: Current Medications Acetaminophen (Tylenol 325mg Tab) 650 mg PO Q6 PRN PRN Reason: Ear Pain. Last Admin: 07/31/17 08:22 Dose: 650 mg Acetaminophen/Butalbital/Caffeine (Fioricet) 1 tab PO Q4 PRN PRN Reason: Pain (4-10) Last Admin: 07/30/17 15:35 Dose: 1 tab Alendronate Sodium (Fosamax) 70 mg PO FRI@0630 [facility] Last Admin: 07/31/17 06:25 Dose: 70 mg Amlodipine Besylate (Norvasc) 10 mg PO DAILY [facility] Last Admin: 07/31/17 08:20 Dose: 10 mg Aspirin (Aspirin Chewable) 81 mg PO DAILY [facility] Last Admin: 07/31/17 08:19 Dose: 81 mg Atorvastatin Calcium (Lipitor) 80 mg PO HS [facility] Clopidogrel Bisulfate (Plavix) 75 mg PO DAILY [facility] Last Admin: 07/31/17 08:19 Dose: 75 mg Enoxaparin Sodium (Lovenox) 70 mg SC Q12 [facility] PRN Reason: Protocol Last Admin: 07/31/17 08:19 Dose: 70 mg Famotidine (Pepcid) 20 mg PO BID [facility] Last Admin: 07/31/17 08:19 Dose: 20 mg Glipizide (Glucotrol Xl) 5 mg PO BRK [facility] Last Admin: 07/31/17 08:19 Dose: 5 mg Insulin Detemir (Levemir) 30 units SC HS [facility] Last Admin: 07/30/17 21:22 Dose: 30 units Insulin Human Regular (Humulin R) 0 units SC ACHS [facility] PRN Reason: Protocol Last Admin: 07/31/17 06:59 Dose: Not Given Levothyroxine Sodium (Synthroid) 112 mcg PO DAILY@0630 [facility] Losartan Potassium (Cozaar) 50 mg PO DAILY [facility] Last Admin: 07/31/17 08:21 Dose: 50 mg Meclizine HCl (Antivert) 25 mg PO TID [facility] Last Admin: 07/31/17 08:18 Dose: 25 mg Metformin HCl (Glucophage) 1,000 mg PO BID [facility] Last Admin: 07/31/17 08:19 Dose: 1,000 mg Metoprolol Succinate (Toprol Xl) 25 mg PO DAILY [facility] Last Admin: 07/31/17 08:20 Dose: 25 mg Multivitamins/Minerals (Therapeutic-M Tab) 1 tab PO DAILY [facility] Last Admin: 07/31/17 08:19 Dose: 1 tab Results - Vital Signs Recent Vital Signs: Last Vital Signs Temp 97.5 F L 07/31/17 08:03 Pulse 80 07/31/17 08:21 Resp 20 07/31/17 08:03 BP 140/89 07/31/17 08:21 Pulse Ox 100 07/31/17 08:03 - Labs Result Diagrams: 07/31/17 05:10 07/30/17 08:10 Labs: Laboratory Results - last 24 hr 07/30/17 07/30/17 07/30/17 05:29 11:08 15:50 WBC RBC Hgb Hct MCV MCH MCHC RDW Plt Count POC Glucose (mg/dL) 160 H 264 H 198 H Ferritin 07/30/17 07/31/17 07/31/17 20:51 05:10 05:10 WBC 12.7 H RBC 3.82 L Hgb 9.3 L Hct 28.6 L MCV 75.0 L MCH 24.4 L MCHC 32.6 L RDW 15.8 H Plt Count 408 H POC Glucose (mg/dL) 147 H Ferritin 31.3 07/31/17 06:01 WBC RBC Hgb Hct MCV MCH MCHC RDW Plt Count POC Glucose (mg/dL) 71 Ferritin
[2017-07-31 10:05] LABS: IRON 61 ug/dL (49-181)
[2017-07-31] MEDS ORDERED: Risperidone M tab 0.5MG PO PRN (10:30)
--- NOTE | 2017-07-31 11:34 | CT ---
PROCEDURE: CT HEAD WITHOUT CONTRAST. HISTORY: AMS S/P FALL COMPARISON: None available. TECHNIQUE: Axial computed tomography images were obtained through the head/brain without intravenous contrast. Radiation dose: Total exam DLP = 1072.29 mGy-cm. This CT exam was performed using one or more of the following dose reduction techniques: Automated exposure control, adjustment of the mA and/or kV according to patient size, and/or use of iterative reconstruction technique. FINDINGS: HEMORRHAGE: No intracranial hemorrhage. BRAIN: There is a large subacute left cerebellar hemisphere infarction with mild edema without mass effect or midline shift. There are mild chronic microangiopathic changes. There is no extra-axial fluid collection. VENTRICLES: There is mild age-related global parenchymal volume loss and proportionate enlargement of the ventricles and cortical sulci. CALVARIUM: There is no calvarial fracture or extracranial soft tissue swelling. PARANASAL SINUSES: There is mild polypoid soft tissue swelling in the maxillary sinuses. The remaining included paranasal sinuses are predominantly clear. MASTOID AIR CELLS: Unremarkable as visualized. No inflammatory changes. OTHER FINDINGS: None. IMPRESSION: 1. No acute intracranial abnormality. 2. Large subacute left cerebellar hemisphere infarction. 3. Mild chronic microangiopathic changes and mild age-related global parenchymal volume loss.
[2017-07-31 13:33] LABS: FOLATE 12.9 ng/mL
--- NOTE | 2017-07-31 15:03 | CP.PCM.PN ---
Subjective - Date & Time of Evaluation Date of Evaluation: 07/31/17 Time of Evaluation: 09:30 - Subjective Subjective: no acute complaints at present, doing therapy Objective - Vital Signs/Intake and Output Vital Signs (last 24 hours): Temp Pulse Resp BP Pulse Ox 97.5 F L 80 20 140/89 100 07/31/17 08:03 07/31/17 08:21 07/31/17 08:03 07/31/17 08:21 07/31/17 08:03 - Medications Medications: Current Medications Acetaminophen (Tylenol 325mg Tab) 650 mg PO Q6 PRN PRN Reason: Ear Pain. Last Admin: 07/31/17 08:22 Dose: 650 mg Acetaminophen/Butalbital/Caffeine (Fioricet) 1 tab PO Q4 PRN PRN Reason: Pain (4-10) Last Admin: 07/30/17 15:35 Dose: 1 tab Alendronate Sodium (Fosamax) 70 mg PO FRI@0630 [facility] Last Admin: 07/31/17 06:25 Dose: 70 mg Amlodipine Besylate (Norvasc) 10 mg PO DAILY [facility] Last Admin: 07/31/17 08:20 Dose: 10 mg Aspirin (Aspirin Chewable) 81 mg PO DAILY [facility] Last Admin: 07/31/17 08:19 Dose: 81 mg Atorvastatin Calcium (Lipitor) 80 mg PO HS [facility] Clopidogrel Bisulfate (Plavix) 75 mg PO DAILY [facility] Last Admin: 07/31/17 08:19 Dose: 75 mg Enoxaparin Sodium (Lovenox) 70 mg SC Q12 [facility] PRN Reason: Protocol Last Admin: 07/31/17 08:19 Dose: 70 mg Famotidine (Pepcid) 20 mg PO BID [facility] Last Admin: 07/31/17 08:19 Dose: 20 mg Glipizide (Glucotrol Xl) 5 mg PO BRK [facility] Last Admin: 07/31/17 08:19 Dose: 5 mg Haloperidol Lactate (Haldol) 0.5 mg IM Q12 PRN PRN Reason: Agitation Insulin Detemir (Levemir) 30 units SC HS [facility] Last Admin: 07/30/17 21:22 Dose: 30 units Insulin Human Regular (Humulin R) 0 units SC [facility] PRN Reason: Protocol Last Admin: 07/31/17 12:29 Dose: 2 unit Levothyroxine Sodium (Synthroid) 112 mcg PO DAILY@0630 [facility] Losartan Potassium (Cozaar) 50 mg PO DAILY [facility] Last Admin: 07/31/17 08:21 Dose: 50 mg Meclizine HCl (Antivert) 25 mg PO TID [facility] Last Admin: 07/31/17 12:26 Dose: 25 mg Metformin HCl (Glucophage) 1,000 mg PO BID [facility] Last Admin: 07/31/17 08:19 Dose: 1,000 mg Metoprolol Succinate (Toprol Xl) 25 mg PO DAILY [facility] Last Admin: 07/31/17 08:20 Dose: 25 mg Multivitamins/Minerals (Therapeutic-M Tab) 1 tab PO DAILY [facility] Last Admin: 07/31/17 08:19 Dose: 1 tab Risperidone (Risperdal M-Tab) 0.5 mg PO Q12 PRN PRN Reason: Agitation - Labs Labs: 07/31/17 05:10 07/30/17 08:10 - Head Exam Head Exam: ATRAUMATIC, NORMAL INSPECTION - Eye Exam Eye Exam: EOMI, Normal appearance, PERRL Pupil Exam: NORMAL ACCOMODATION - ENT Exam ENT Exam: Mucous Membranes Moist, Normal Exam - Neck Exam Neck Exam: Full ROM, Normal Inspection - Respiratory Exam Respiratory Exam: NORMAL BREATHING PATTERN - Cardiovascular Exam Cardiovascular Exam: REGULAR RHYTHM - GI/Abdominal Exam GI & Abdominal Exam: Soft, Normal Bowel Sounds - Rectal Exam Rectal Exam: NORMAL INSPECTION - Exam External exam: NORMAL EXTERNAL EXAM - Extremities Exam Extremities Exam: Full ROM, Normal Capillary Refill - Back Exam Back Exam: NORMAL INSPECTION - Neurological Exam Neurological Exam: Alert, Awake Neuro motor strength exam: Left Upper Extremity: 3, Right Upper Extremity: 3, Left Lower Extremity: 3, Right Lower Extremity: 3 - Psychiatric Exam Psychiatric exam: Normal Affect, Normal Mood - Skin Skin Exam: Dry, Intact Assessment and Plan (1) Anemia Status: Acute (2) CVA (cerebral vascular accident) Assessment & Plan: pt, ot , re, speech stauts post fall neurology, medical, followup cat scan covering for Dr Esteban Mcdaniels Status: Acute (3) HLD (hyperlipidemia) Status: Acute (4) HTN (hypertension) Status: Acute (5) Insulin dependent type 2 diabetes mellitus Status: Acute (6) Microcytic anemia Status: Acute (7) Syncope Status: Acute (8) Vertigo Status: Acute
--- NOTE | 2017-07-31 15:41 | PN ---
DATE: 07/31/2017 SUBJECTIVE: Patient seen and examined. Interim events noted. Consults noted and appreciated. Cardiology and Neurology consult and intervention noted and appreciated. Patient remains in Acute Rehab Unit. Patient feels okay. No chest pain, no shortness of breath. Did have some dizziness and headache, controlled with medication. Patient also had an event overnight where patient was found on the floor, no apparent injury. PHYSICAL EXAMINATION: GENERAL: Patient is in no acute distress. VITAL SIGNS: Stable. HEART: S1 and S2, normal and regular LUNGS: Good bilateral air exchange. ABDOMEN: Soft and nontender. EXTREMITIES: No edema, no calf swelling, no tenderness, no acute ischemia. CENTRAL NERVOUS SYSTEM: Essentially unchanged, although according to nursing staff, patient had some altered behavior. No acute focal deficit of new origin found. DIAGNOSTIC DATA: Available diagnostic data reviewed. ASSESSMENT AND PLAN: Overall, patient's general medical condition is stable, although does have some signs of mental status change. Plan as ordered. Cristopher Fried MD
--- NOTE | 2017-07-31 19:05 | RAD ---
PROCEDURE: Radiographs of the left tibia and fibula. HISTORY: pain s/p fall COMPARISON: None available. TECHNIQUE: Frontal and lateral views obtained. FINDINGS: BONES: No fracture or destructive lesion. JOINT SPACES: Unremarkable. OTHER FINDINGS: None. IMPRESSION: Unremarkable radiographs of the left tibia and fibula.
--- NOTE | 2017-07-31 19:05 | RAD ---
PROCEDURE: Left Hip X-ray Radiographs. HISTORY: pain s/p fall COMPARISON: None. FINDINGS: BONES: Normal. No fracture. JOINTS: Normal. SOFT TISSUES: Normal. OTHER FINDINGS: None. IMPRESSION: Normal left hip radiographs.
[2017-07-31] MEDS: Insulin Detemir 100 Units/ml Inj SC SCH (21:54)
[2017-08-01] MEDS: Insulin Regular 100 units/ml SC SCH ×4 (06:46→21:43)
[2017-08-01] MEDS: GlipiZIDE 10 mg SR Tab PO SCH ×2 (06:55→10:20)
[2017-08-01] MEDS: Levothyroxine 112 MCG TAB PO SCH (06:56)
[2017-08-01] MEDS: Enoxaparin 80 mg Syringe SC SCH ×2 (09:00→21:44)
[2017-08-01] MEDS: Multivitamin With Minerals Tab PO SCH (09:00)
--- NOTE | 2017-08-01 09:59 | PN ---
DATE: 08/01/2017 SUBJECTIVE: The patient is seen and examined. Interim events noted. Consults noted and appreciated. Psychiatry and Neurology followup and intervention noted and appreciated. The patient remains in Acute Rehab Unit. The patient feels okay. No specific complaint of chest pain or shortness of breath. . PHYSICAL EXAMINATION: GENERAL: The patient is in no acute distress. VITAL SIGNS: Stable. HEART: S1 and S2, normal and regular. LUNGS: Good bilateral air entry. ABDOMEN: Soft, nontender. EXTREMITIES: No edema. No calf swelling. No tenderness. No acute ischemia. CENTRAL NERVOUS SYSTEM: Essentially unchanged. DIAGNOSTIC DATA: Available diagnostic data reviewed. Hemoglobin A1c is 10. ASSESSMENT AND PLAN: Overall, the patient's general medical condition is stable. Plan as ordered. Cristopher Fried MD
[2017-08-01] MEDS: Metoprolol Succinate 25 mg XL Tab PO SCH (10:19)
[2017-08-01] MEDS: Apap-Butalbital-Caffeine 325-50-40mg Tab PO PRN ×2 (10:26→16:56)
[2017-08-01] MEDS: Insulin Detemir 100 Units/ml Inj SC SCH (22:00)
--- NOTE | 2017-08-01 22:57 | PN ---
DATE: PHYSIATRY PROGRESS NOTE SUBJECTIVE: The patient is a 72-year-old Vietnamese male admitted for acute inpatient rehab program. Patient with complaints of generalized aches and pain, status post complaints of left hip pain, left leg pain. No other acute complaints at present. PHYSICAL EXAMINATION: VITAL SIGNS: Stable. NECK: Supple. CHEST: Symmetrical. HEART: Sounds S1, S2. ABDOMEN: Area is benign. EXTREMITIES: No clubbing, cyanosis, or edema. IMPRESSION: Acute cerebrovascular accident, ICD code of 01.2; history of diabetes; hypertension; dyslipidemia; cataract; the patient is status post fall previously, status post complaints of pain in the hip and left leg, status post x-rays of the left hip and the left tibia and fibula which are negative for fracture. The patient now for physical therapy, occupational therapy, recreational therapy, speech therapy. Follow up with medical physician and neurologist as well. Jone Santana MD
[2017-08-02] MEDS: Levothyroxine 112 MCG TAB PO SCH (06:31)
[2017-08-02] MEDS: Insulin Regular 100 units/ml SC SCH ×4 (06:32→21:34)
[2017-08-02 07:11] LABS: HEMATOCRIT 29.3 % (35.0-51.0); MEAN CORPUSCULAR HEMOGLOBIN 24.1 pg (27.0-31.0); MEAN CORPUSCULAR HGB CONC 31.2 g/dL (33.0-37.0); RED CELL DISTRIBUTION WIDTH 16.3 % (11.5-14.5); WHITE BLOOD COUNT 16.5 K/uL (4.8-10.8)
[2017-08-02 07:28] LABS: BLOOD UREA NITROGEN 17 mg/dl (9-20); CALCIUM 8.8 mg/dL (8.4-10.2); CARBON DIOXIDE 23 mmol/L (22-30); CHLORIDE 99 mmol/L (98-107); GFR AFRICAN-AMERICAN > 60; GLUCOSE,RANDOM 100 mg/dL (75-110); POTASSIUM 4.4 MMOL/L (3.6-5.0); SODIUM 132 mmol/l (132-148)
[2017-08-02 07:43] LABS: MEAN CELL VOLUME 77.1 fl (80.0-94.0)
--- NOTE | 2017-08-02 08:00 | PN ---
DATE: 08/02/2017 SUBJECTIVE: The patient is seen and examined. Interim events noted. Consults noted and appreciated. The patient remains in Acute Rehab Unit. The patient is sleepy, arousable. Denies any specific complaint. No specific issue reported by nursing staff. PHYSICAL EXAMINATION: GENERAL: The patient is in no acute distress. VITAL SIGNS: Stable. HEART: S1 and S2, normal and regular. LUNGS: Good bilateral air exchange. ABDOMEN: Soft, nontender. EXTREMITIES: No edema. No calf swelling. No tenderness. No acute ischemia. CENTRAL NERVOUS SYSTEM: Essentially unchanged. DIAGNOSTIC DATA: Available diagnostic data reviewed. ASSESSMENT AND PLAN: Overall, the patient's general medical condition is stable. Plan as ordered. Cristopher Fried MD
[2017-08-02] MEDS: GlipiZIDE 10 mg SR Tab PO SCH (09:00)
[2017-08-02] MEDS: Multivitamin With Minerals Tab PO SCH (09:47)
[2017-08-02] MEDS: Enoxaparin 80 mg Syringe SC SCH (09:48)
[2017-08-02] MEDS: Metoprolol Succinate 25 mg XL Tab PO SCH (09:50)
[2017-08-02] MEDS: Apap-Butalbital-Caffeine 325-50-40mg Tab PO PRN ×2 (13:31→21:32)
--- NOTE | 2017-08-02 17:08 | RAD ---
HISTORY: r/o pneumonia COMPARISON: No prior. FINDINGS: LUNGS: No active pulmonary disease. PLEURA: No significant pleural effusion identified, no pneumothorax apparent. CARDIOVASCULAR: Normal. OSSEOUS STRUCTURES: No significant abnormalities. VISUALIZED UPPER ABDOMEN: Normal. OTHER FINDINGS: None. IMPRESSION: No acute cardiopulmonary disease appreciated.
[2017-08-02 18:08] LABS: RBC URINE < 1 /hpf (0-3); URINE BILIRUBIN NEGATIVE (NEGATIVE); URINE BLOOD NEGATIVE (NEGATIVE); URINE COLOR YELLOW (YELLOW); URINE GLUCOSE (UA) NEG (Normal); URINE KETONE NEGATIVE (NEGATIVE); URINE LEUKOCYTE ESTERASE NEG Leu/uL (Negative); URINE PROTEIN 30 mg/dL (NEGATIVE); URINE UROBILINOGEN 0.2-1.0 mg/dL (0.2-1.0); WBC URINE < 1 /hpf (0-5)
[2017-08-02 20:48] VITALS: BP 122/69; PULSE 89; RESP 20; TEMP 96.4; O2SAT 99
[2017-08-02] MEDS ORDERED: Enoxaparin 80 mg Syringe SC SCH (21:00)
[2017-08-02] MEDS: Insulin Detemir 100 Units/ml Inj SC SCH (21:33)
[2017-08-03] MEDS: Apap-Butalbital-Caffeine 325-50-40mg Tab PO PRN (01:32)
[2017-08-03] MEDS ORDERED: Midazolam 2 MG/2 ML VIAL IV ONE (04:46)
[2017-08-03 04:48] LABS: ABG ALLEN TEST YES; ARTERIAL BLOOD GAS HCO3 23.5 mmol/L (21-28); ARTERIAL BLOOD GAS O2 CAPACITY 12.8 mL/dL (16-24); ARTERIAL BLOOD GAS O2 CONTENT 12.8 ML/dL (15-23); ARTERIAL BLOOD GAS PH 7.46 (7.35-7.45); ARTERIAL BLOOD GAS PO2 102 mm/Hg (80-100); ARTERIAL BLOOD HGB O2 SAT 96.5 % (95.0-98.0); CARBOXYHEMOGLOBIN 2.2 % (0.5-1.5); HHB 0.1 % (0.0-5.0); METHEMOGLOBIN 1.2 % (0.0-3.0)
--- NOTE | 2017-08-03 05:22 | PCM.RRT ---
<Alejandra Jenkins - Last Filed: 08/03/17 05:53> SALON CUSTOMER EXPERIENCE SPECIALIST Nurse Assessment - Situation SALON CUSTOMER EXPERIENCE SPECIALIST Responder Arrival Time: 04:15 Location: 6th floor, Acute Rehab Room Number: 620 [employer]ON CUST[employer]ER EXPERIENCE SPECIALIST Reason for Call: Respiratory Distress, Change in Mental Status SALON CUSTOMER EXPERIENCE SPECIALIST Called By: RN - IV IV Inserted during SALON CUSTOMER EXPERIENCE SPECIALIST?: Yes IV Fluids Initiated During SALON CUSTOMER EXPERIENCE SPECIALIST?: No New IV Insertion Tolerance:: Good - Respiratory Oxygen Delivery Method: Room Air Received Nebulizer Treatments: No Was the Patient Ventilated with Bag/Mask 100% O2?: Yes I.Reason for SALON CUSTOMER EXPERIENCE SPECIALIST - A) Acute Change in Patient: (Select all that apply): Staff member or family is worried about patient, Acute change in mental status Subjective: SALON CUSTOMER EXPERIENCE SPECIALIST was called by RN for 72 years old male with PMH of DM, HTN, Hypothyroidism and CVA who was admitted to Acute Rehab after acute cerebellar infract. SALON CUSTOMER EXPERIENCE SPECIALIST was called for respiratory distress and AMS. Patient was given Fioricet last night. On arrival, Vitals: 180/90, PP 96 and O2 sat 100%, patient was lethargic, nonresponsive, breathing irregularly with audible stridors. ABG was done (PH 7.46,Pco2 30, Po2 102), POC glucose 333, patient started on bag mask ventilation , Patient was given Versed 2mg followed by intubation. SALON CUSTOMER EXPERIENCE SPECIALIST was ended after patient was transferred to ER for further Labs and imaging. - Case discussed with Dr. Carmona --- Alejandra Jenkins, PGY-1 - Neurological Status (Select all that apply): Lethargic. absent: Alert, Oriented, Follows Commands - Respiratory Oxygen Delivery Method: Intubated - Constitutional Additional Comments: lethargic - Head Head Exam: ATRAUMATIC, NORMAL INSPECTION, NORMOCEPHALIC - Eyes Eye Exam: Normal appearance - Respiratory Exam Respiratory Exam: Accessory Muscle Use, Respiratory Distress, Stridor - Cardiovascular Exam Cardiovascular Exam: +S1, +S2 - GI/Abdominal Exam GI & Abdominal Exam: Soft - Neurological Exam Neurological Exam: absent: Alert, Awake, Oriented x3 - Extremities Exam Extremities Exam: absent: Pedal Edema <Jacques Carmona - Last Filed: 08/03/17 06:28> Attending/Attestation - Attestation I have personally seen and examined this patient.: No I have fully participated in the care of the patient.: No I have reviewed all pertinent clinical information, including history, physical exam and plan: No Notes (Text): 08/03/17 06:11 I saw and examined this patient shoulder to shoulder with Dr Jenkins. The assessment and plan as outlined indicate my direct input. A&P #. Acute respiratory distress with impending respiratory failure in patient with stridor and apneic episodes - Emergent Intubation #. Altered mental status, probably due to extension of the stroke. r/o seizure, sleep apnea less likely - Transfer to ED for Stat CT head and readmit to ICU #. Recent total left cerebellar Infarct - Continue management Critical care time: 15 minutes The patient's Son was called and case discussed with him.
--- NOTE | 2017-08-03 07:37 | PCM.PROC ---
Procedures Attestation:: I certify that I have explained the specified Operation(s) or Procedure(s), risks, benefits and reasonable alternatives to the Patient and/or other person responsible. The opportunity was given to ask questions and all questions answered - Intubation Time Out Performed: Yes Sedative: Versed Laryngoscope: Edi ET Tube Size: 7.0 ET Tube Uncuffed: No ET Tube Secured Locarion: Lips ET Tube Placement Confirmation: Visualized Passing Through Cords, Breath Sounds Equal Bilaterally, No Breath Sounds Over Epigastrum, Confirmation w/Capnometry Patient Tolerated Procedure: Well Procedure Immediate Complications: None
--- NOTE | 2017-08-03 08:04 | CARD ---
APPROVED REPORT EKG Measurement Heart [id number] <Conclusion> Normal sinus rhythm Normal ECG
== END 2017-08-03 05:00 | disposition short-term general hospital (02) | DRG 57 ==
PROVIDERS: ADMIT Internal Medicine; ATTEND Internal Medicine
PROC: F08Z4FZ Home Management Treatment using Assistive, Adaptive, Supportive or Protective Equipment (ICD-10-PCS; 2017-07-30)
PROC: F07M6FZ Therapeutic Exercise Treatment of Musculoskeletal System - Whole Body using Assistive, Adaptive, Supportive or Protective Equipment (ICD-10-PCS; 2017-07-31)
PROC: F07Z9FZ Gait Training/Functional Ambulation Treatment using Assistive, Adaptive, Supportive or Protective Equipment (ICD-10-PCS; 2017-07-31)
PROC: 0BH17EZ Insertion of Endotracheal Airway into Trachea, Via Natural or Artificial Opening (ICD-10-PCS; principal; 2017-08-03)
PROC: 5A1935Z Respiratory Ventilation, Less than 24 Consecutive Hours (ICD-10-PCS; 2017-08-03)
DX: I69.351 Hemiplegia and hemiparesis following cerebral infarction affecting right dominant side (principal); E11.65 Type 2 diabetes mellitus with hyperglycemia; R06.03 Acute respiratory distress; F03.90 Unspecified dementia, unspecified severity, without behavioral disturbance, psychotic disturbance, mood disturbance, and anxiety; E03.9 Hypothyroidism, unspecified; D50.9 Iron deficiency anemia, unspecified; E78.5 Hyperlipidemia, unspecified; H53.2 Diplopia; I10 Essential (primary) hypertension; Z79.4 Long term (current) use of insulin; Z79.82 Long term (current) use of aspirin; R27.8 Other lack of coordination; Z86.73 Personal history of transient ischemic attack (TIA), and cerebral infarction without residual deficits; H26.9 Unspecified cataract; M25.552 Pain in left hip; M79.605 Pain in left leg; R41.3 Other amnesia; R94.6 Abnormal results of thyroid function studies; R06.1 Stridor; R41.82 Altered mental status, unspecified; R06.81 Apnea, not elsewhere classified

== ENCOUNTER 2017-08-03 05:19 | Inpatient (IN) | payer MEDICARE, MEDICAID ==
[2017-08-03 05:24] VITALS: BMI 22.6
[2017-08-03 05:26] VITALS: O2SAT 100
--- NOTE | 2017-08-03 05:34 | ED PDOC ---
HPI: SOB/CHF/COPD Time Seen by Provider: 08/03/17 05:21 Chief Complaint (Nursing): Respiratory Distress Chief Complaint (Provider): Respiratory Distress History Per: Other (Hospitalist) History/Exam Limitations: clinical condition Onset/Duration Of Symptoms: Hrs (x1) Current Symptoms Are (Timing): Still Present Recently: Treated By A Physician, Hospitalized Additional Complaint(s): 72 year old male presents to ED due to respiratory distress x1 hour and has a past medical history of DM, hyperternsion, hypothyroidism, and a recent cerebellar infarct. Patient was recently admitted into [place] [facility] and presents to ED intubated after TYPIST. As per resident and hospitalist, patient complained of a headache x4.5 hours PHYSICAL THER and was given 1 Fioricet tablet. Patient was noted to have stridor and respiratory distress x1 hour PHYSICAL THER to ED. PCP: Cristopher Fried Past Medical History Reviewed: Historical Data, Nursing Documentation, Vital Signs Vital Signs: Last Vital Signs Temp 97.8 F 08/03/17 06:05 Pulse 83 08/03/17 06:17 Resp 14 08/03/17 06:17 BP 163/76 H 08/03/17 06:17 Pulse Ox 100 08/03/17 06:30 - Medical History PMH: HTN, Hypothyroidism Denies: No Chronic Diseases, HIV, Chronic Kidney Disease - Family History Family History: States: Unknown Family Hx - Immunization History Hx Tetanus Toxoid Vaccination: No Hx Influenza Vaccination: No Hx Pneumococcal Vaccination: No - Home Medications Home Medications: Ambulatory Orders Medication Instructions Recorded Fosamax 70 mg PO QWK 07/23/17 Glimepiride 2 mg PO TID 07/23/17 Losartan 100 mg PO DAILY 07/23/17 MetFORMIN 1,000 mg PO BID 07/23/17 Acetaminophen/Butalbital/Caf 1 tab PO Q4 PRN tab 07/29/17 [Fioricet] Aspirin [Aspirin Chewable] 81 mg PO DAILY chew 07/29/17 Clopidogrel [Plavix] 75 mg PO DAILY tab 07/29/17 Famotidine [Pepcid] 20 mg PO BID tab 07/29/17 Insulin Glargine, Recombina 30 unit SC HS unit 07/29/17 [Lantus] Meclizine [Meclizine*] 25 mg PO TID tab 07/29/17 Metoprolol Succinate [Toprol XL] 25 mg PO DAILY tab 07/29/17 Multivitamins [Hexavitamin] 1 tab PO DAILY tab 07/29/17 Naproxen [Anaprox DS] 550 mg PO BID PRN tab 07/29/17 Rosuvastatin Calcium [Crestor] 10 mg PO HS tab 07/29/17 amLODIPine [Norvasc] 10 mg PO DAILY tab 07/29/17 Atorvastatin Calcium [Lipitor] 80 mg PO HS 08/03/17 Enoxaparin [Lovenox] 70 mg SQ BID 08/03/17 Insulin Human Regular [Novolin R] See Protocol SC ACHS 08/03/17 Levothyroxine [Synthroid] 112 mcg PO DAILY@0630 08/03/17 Risperidone [Risperdal M-TAB] 0.5 mg PO BID PRN 08/03/17 - Allergies Allergies/Adverse Reactions: Allergies Allergy/AdvReac Type Severity Reaction Status Date / Time No Known Allergies Allergy Verified 08/03/17 05:20 Curb-65 Severity Score - CURB-65 Severity Score Confusion: No Respiratory Rate greater than/equal to 30: No Systolic BP <90 or Diastolic BP less than/equal 60mmHg: No Age >64: Yes Curb-65 Score: 1 Percentage 30-day mortality: 2.7% Wells Criteria for PE - Wells Criteria for Pulmonary Embolism Heart Rate >100: No Hemoptysis: No Total Score: 0 Review of Systems Review Of Systems: ROS cannot be obtained secondary to pt's inabilty to answer questions. Physical Exam - Reviewed Nursing Documentation Reviewed: Yes Vital Signs Reviewed: Yes - Physical Exam Appears: Positive for: In Acute Distress (unresponsive, intubated) Head Exam: Positive for: ATRAUMATIC Skin: Positive for: Normal Color, Warm, Dry Eye Exam: Negative for: EOMI, PERRL (pupils minimally reactive) Cardiovascular/Chest: Negative for: Murmur Respiratory: Positive for: Stridor, Respiratory Distress Neurologic/Psych: Positive for: Other (Patient unresponsibe to voice and painful stimuli. Spontaneous movement of bilateral feet. Equivocal Babinski on right, negative on left.). Negative for: Alert, Oriented - Laboratory Results Result Diagrams: 08/03/17 05:35 08/03/17 05:35 - ECG O2 Sat by Pulse Oximetry: 100 (EI) Pulse Ox Interpretation: Normal - Critical Care Total Time (In Min): 30 Medical Decision Making Medical Decision Makin Initial impression: hemorrhagic stroke v repeat ischemic stroke v medication side effect Initial plan: * T&S * CT HEAD * EKG * Labs * Hemoglobin A1C * Lipid panel * Trop I * PTT/PT * CXR Cannot calculate NIH due to acuity of condition: intubated, sedated 05 Patient will be admitted to INPATIENT ICU under Dr. Fried. [address] Guo, who recommends no intervention at this time. 06 CT FINDINGS: There is atrophy. There is chronic small vessel ischemic disease. Again seen is low-attenuation in the left cerebellum suggestive of subacute infarct. However, there is now extensive hemorrhage throughout the cerebellum with numerous fluid/fluid levels. The cerebellar hemorrhage extends into the fourth ventricle. There is also blood in the third ventricle and lateral ventricles. The ventricles have increased in size since prior presumably secondary to the intraventricular hemorrhage. On comparable images (20), lateral ventricles measure 22 mm in width on the current compared to 17 mm on the prior. There is effacement of the quadrigeminal plate cistern, ambiens cistern, pre pontine cistern. Trace mucosal thickening maxillary sinuses unchanged. The osseous structures are normal. IMPRESSION: Left cerebellar infarct as seen on the prior study however there is now extensive cerebellar hemorrhage extending into the ventricular system as discussed above with cistern effacement. 0628 Spoke with family, severity of condition discussed. Son at bedside currently. Scribe Attestation: Documented by Carolina Bolivar acting as a scribe for Farhan Ram MD. Scribe Attestation: All medical record entries made by the Scribe were at my direction and personally dictated by me. I have reviewed the chart and agree that the record accurately reflects my personal performance of the history, physical exam, medical decision making, and the department course for this patient. I have also personally directed, reviewed, and agree with the discharge instructions and disposition. Disposition - Clinical Impression Clinical Impression: Cerebellar hemorrhage, acute - Patient ED Disposition Is Patient to be Admitted: Yes - Disposition Disposition Time: 06:00 Condition: CRITICAL - Pt Status Changed To: Hospital Disposition Of: Inpatient - Admit Certification Admit to Inpatient:: After my assessment, the patient will require hospitalization for at least two midnights. This is because of the severity of symptoms shown, intensity of services needed, and/or the medical risk in this patient being treated as an outpatient.
[2017-08-03 05:41] LABS: BASO # 0.1 K/uL (0.0-0.2); BASO % 0.4 % (0.0-2.0); EOS # 0.3 K/uL (0.0-0.7); HEMATOCRIT 28.2 % (35.0-51.0); LYMPH # 2.3 K/uL (1.0-4.3); LYMPH % 8.3 % (20.0-40.0); MEAN CELL VOLUME 76.8 fl (80.0-94.0); MEAN CORPUSCULAR HEMOGLOBIN 24.4 pg (27.0-31.0); MEAN CORPUSCULAR HGB CONC 31.7 g/dL (33.0-37.0); MEAN PLATELET VOLUME 8.1 fl (7.2-11.7); MONO # 2.3 K/uL (0.0-0.8); MONO % 8.2 % (0.0-10.0); NEUT # 22.8 K/uL (1.8-7.0); NEUT % 82.1 % (50.0-75.0); PLATELET COUNT 510 K/uL (130-400); RED CELL DISTRIBUTION WIDTH 16.3 % (11.5-14.5); WHITE BLOOD COUNT 27.8 K/uL (4.8-10.8)
[2017-08-03 06:06] LABS: ALB/GLOB RATIO 1.4 (1.0-2.1); ALKALINE PHOSPHATASE 89 U/L (38-126); ALT/SGPT 48 U/L (21-72); AST/SGOT 57 U/L (17-59); BILIRUBIN,TOTAL 0.8 mg/dl (0.2-1.3); BLOOD UREA NITROGEN 19 mg/dl (9-20); CALCIUM 8.8 mg/dL (8.4-10.2); CARBON DIOXIDE 23 mmol/L (22-30); CHLORIDE 93 mmol/L (98-107); CHOLESTEROL 132 mg/dL (0-199); GFR AFRICAN-AMERICAN > 60; GLUCOSE,RANDOM 342 mg/dL (75-110); POTASSIUM 4.5 MMOL/L (3.6-5.0); SODIUM 128 mmol/l (132-148); TOTAL PROTEIN 7.1 G/DL (6.3-8.2)
--- NOTE | 2017-08-03 06:26 | CT ---
EXAM: CT Head Without Intravenous Contrast EXAM DATE/TIME: 08/03/2017 5:25 AM CLINICAL HISTORY: 72 years old, male; Signs and symptoms; Altered mental status/memory loss; Additional info: Intubated, recent cerebellar infarct TECHNIQUE: Axial computed tomography images of the head/brain without intravenous contrast. All CT scans at this facility use one or more dose reduction techniques, viz.: automated exposure control; ma/kV adjustment per patient size (including targeted exams where dose is matched to indication; i.e. head); or iterative reconstruction technique. Coronal and sagittal reformatted images were created and reviewed. COMPARISON: CT - HEAD W/O CONTRAST 2017-07-31 10:43 FINDINGS: There is atrophy. There is chronic small vessel ischemic disease. Again seen is low-attenuation in the left cerebellum suggestive of subacute infarct. However, there is now extensive hemorrhage throughout the cerebellum with numerous fluid/fluid levels. The cerebellar hemorrhage extends into the fourth ventricle. There is also blood in the third ventricle and lateral ventricles. The ventricles have increased in size since prior presumably secondary to the intraventricular hemorrhage. On comparable images (20), lateral ventricles measure 22 mm in width on the current compared to 17 mm on the prior. There is effacement of the quadrigeminal plate cistern, ambiens cistern, pre pontine cistern. Trace mucosal thickening maxillary sinuses unchanged. The osseous structures are normal. IMPRESSION: Left cerebellar infarct as seen on the prior study however there is now extensive cerebellar hemorrhage extending into the ventricular system as discussed above with cistern effacement.
--- NOTE | 2017-08-03 06:36 | CP.PCM.CON ---
History of Present Illness - History of Present Illness History of Present Illness: Attending: Cristopher Fried MD Neuro: Nasim Watts MD Seed Specialist: Miryam Rowe MD Reason for Consult: Critical Care management HPI: The Hx is obtained from discussion with the medical staff and after review of the Medical and Laboratory records. This is a 72 years old male with hx of DM II, HTN, admitted to the [facility] on08/02/17 and Diagnosed withy left Cerebellar Infarct, transferred to the [facility] on 07/29/17 for continued care and Physical therapy. Today Rapid response Team was called because of sudden unset of Altered mental status with no response to verbal stimulus but moving upper extremities aimlessly, accompanied with apneic respiration and stridors. He apparently complained of headache before and was given his scheduled Fiorecet. At the CALENDER LET OFF HELPER the patient was noted to need Emergent Intubation. This was done by the hospitalist and the patient was immediately transferred to the ED for A Stat CT of head showed Intracranial bleed. The neurosurgeon was called. PMH: DM II; HTN; Hypothyroidism; CVA with left Cerebellar Infarct 07/23/17; Microcytic Anemia PSH: Bilateral Cataract Surgery 04/20/13; Phymosis with circumcision 04/23/15 SH: Never smoked; No illegal drug use; No alcohol; live with family FH: No known family hx Allergies: NKDA Medication: Reviewed Review of Systems - Review of Systems Review of Systems: Review of systems is limited because of patients condition Past Patient History - Past Medical History & Family History Past Medical History?: Yes - Past Social History Smoking Status: Never Smoked Chewing Tobacco Use: No Cigar Use: No Alcohol: None Drugs: Denies Home Situation {Lives}: With Family - CARDIAC Hx Hypertension: Yes - PULMONARY Hx Respiratory Disorders: No - NEUROLOGICAL Hx Neurological Disorder: Yes - HEENT Hx Cataracts: Yes (Bilateral (04/20/2013)) Other/Comment: - Had complaints of double vision - RENAL Hx Chronic Kidney Disease: No - ENDOCRINE/METABOLIC Hx Hypothyroidism: Yes - HEMATOLOGICAL/ONCOLOGICAL Hx Human Immunodeficiency Virus (HIV): No - INTEGUMENTARY Hx Dermatological Problems: No - MUSCULOSKELETAL/RHEUMATOLOGICAL Hx Falls: No - GASTROINTESTINAL Hx Gastrointestinal Disorders: No - GENITOURINARY/GYNECOLOGICAL Hx Genitourinary Disorders: Yes (Phimosis, Circumcision 05/03/2015) - PSYCHIATRIC Hx Psychophysiologic Disorder: Yes Hx Substance Use: No - SURGICAL HISTORY Hx Surgeries: Yes Hx Cataract Extraction: Yes ((Bilateral: 04/20/2013)) Other/Comment: - Cir - ANESTHESIA Hx Anesthesia: Yes Hx Anesthesia Reactions: No Hx Malignant Hyperthermia: No Meds Allergies/Adverse Reactions: Allergies Allergy/AdvReac Type Severity Reaction Status Date / Time No Known Allergies Allergy Verified 08/03/17 05:20 Physical Exam - Constitutional Additional comments: Intubated and sedated - Head Exam Head Exam: ATRAUMATIC, NORMAL INSPECTION, NORMOCEPHALIC - Eye Exam Additional comments: Pupils 2mm reacting sluggish to light - ENT Exam ENT Exam: Mucous Membranes Dry, Normal External Ear Exam - Neck Exam Neck exam: Negative for: Lymphadenopathy, Thyromegaly Additional comments: Some stiffness at the neck - Respiratory Exam Respiratory Exam: absent: Rales Additional comments: Patient intubated with no rales, wheezing nor rhonchi - GI/Abdominal Exam GI & Abdominal Exam: Normal Bowel Sounds, Soft. absent: Mass, Organomegaly - Rectal Exam Rectal Exam: Deferred - Extremities Exam Extremities exam: Positive for: normal inspection. Negative for: joint swelling , pedal edema - Back Exam Back exam: NORMAL INSPECTION - Neurological Exam Additional comments: No response at present as patient is intubated and unresponsive - Psychiatric Exam Additional comments: Intubated and sedated - Skin Skin Exam: Dry, Intact, Normal Color, Warm Results - Vital Signs Recent Vital Signs: Last Vital Signs Temp 97.8 F 08/03/17 06:05 Pulse 83 08/03/17 06:17 Resp 14 08/03/17 06:17 BP 163/76 H 08/03/17 06:17 Pulse Ox 100 08/03/17 06:30 - Labs Result Diagrams: 08/03/17 05:35 08/03/17 05:35 Labs: Laboratory Results - last 24 hr 08/03/17 08/03/17 08/03/17 05:35 05:35 05:35 WBC 27.8 H D RBC 3.67 L Hgb 8.9 L Hct 28.2 L MCV 76.8 L MCH 24.4 L MCHC 31.7 L RDW 16.3 H Plt Count 510 H MPV 8.1 Neut % (Auto) 82.1 H Lymph % (Auto) 8.3 L Dorado % (Auto) 8.2 Eos % (Auto) 1.0 Baso % (Auto) 0.4 Neut # 22.8 H Lymph # 2.3 Dorado # 2.3 H Eos # 0.3 Baso # 0.1 PT 12.0 INR 1.1 APTT 38.0 H Sodium 128 L Potassium 4.5 Chloride 93 L Carbon Dioxide 23 Anion Gap 17 BUN 19 Creatinine 1.2 Est GFR ( Amer) > 60 Est GFR (Non-Af Amer) 59 Random Glucose 342 H Lactic Acid Calcium 8.8 Total Bilirubin 0.8 AST 57 ALT 48 Alkaline Phosphatase 89 Troponin I < 0.0120 Total Protein 7.1 Albumin 4.2 Globulin 3.0 Albumin/Globulin Ratio 1.4 Triglycerides 247 H D Cholesterol 132 LDL Cholesterol Direct 69 HDL Cholesterol 24 L 08/03/17 05:54 WBC RBC Hgb Hct MCV MCH MCHC RDW Plt Count MPV Neut % (Auto) Lymph % (Auto) Dorado % (Auto) Eos % (Auto) Baso % (Auto) Neut # Lymph # Dorado # Eos # Baso # PT INR APTT Sodium Potassium Chloride Carbon Dioxide Anion Gap BUN Creatinine Est GFR ( Amer) Est GFR (Non-Af Amer) Random Glucose Lactic Acid 1.7 Calcium Total Bilirubin AST ALT Alkaline Phosphatase Troponin I Total Protein Albumin Globulin Albumin/Globulin Ratio Triglycerides Cholesterol LDL Cholesterol Direct HDL Cholesterol - Imaging and Cardiology CT scan - head Status: Image reviewed by me, Report reviewed by me Additional comment: Subacute left cerebellar infarct with acute extensive cerebellar hemorrhage extending into the lateral, 3rd and 4th ventricules. CT scan - chest Status: Image reviewed by me Additional comment: No infiltrates. ET above the Pamela Assessment & Plan - Assessment and Plan (Free Text) Assessment: #.Cerebellar Hemorrhage #. DM II with Hyperglycemia #. Leukocytosis #. Microcytoc Anemia Plan: 72 years old male with hx of DM II, HTN, admitted to the [facility] on and Diagnosed withy left Cerebellar Infarct, transferred to the [facility] on 07/29/17 for continued care and Physical therapy. Today Rapid response Team was called because of sudden unset of Altered mental status with no response to verbal stimulus but moving upper extremities aimlessly, accompanied with apneic respiration and stridors. He apparently complained of headache before and was given his scheduled Fiorecet. At the CALENDER LET OFF HELPER the patient was noted to need Emergent Intubation. This was done by the hospitalist and the patient was immediately transferred to the ED for A Stat CT of head showed Intracranial bleed. The neurosurgeon was called. #. Extensive Cerebellar Hemorrhage into subacute Left Cerebellar infarct - consult Dr Guo Neurosurgery - Control Blood Pressure - IV fluids - Neuro Checks #. DM II with Hyperglycemia - Regular insulin sliding scale according to Accucheck - HbA1c 10.9 on 07/31/17 #. Leukocytosis reactive - follow CBC #. 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 DVT prophylaxis - SCD #. Code Status: Full - Date & Time Date: 08/03/17 Time: 06:36
[2017-08-03] MEDS: Sodium Chloride 0.9% 1,000 ML IV SCH ×2 (07:09→08:00)
[2017-08-03] MEDS ORDERED: Sodium Chloride 0.9% 1,000 ML IV SCH (07:15)
[2017-08-03] MEDS ORDERED: Desmopressin 4 mcg/ml Inj (10 ml) IM STA (07:52)
--- NOTE | 2017-08-03 08:30 | CARD ---
APPROVED REPORT EKG Measurement Heart [id number] <Conclusion> Normal sinus rhythm Left axis deviation Nonspecific ST abnormality Abnormal ECG
--- NOTE | 2017-08-03 08:52 | CP.PCM.PN ---
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, but it also appears that there is bl;ood within the brainstem (not read on official report) It is highly unlikly that any surgical measures (including ventriculostomy) will reverse this condition would suggest conservative supportive measures only Objective - Vital Signs/Intake and Output Vital Signs (last 24 hours): Temp Pulse Resp BP Pulse Ox 96.6 F L 80 12 82/52 L 100 08/03/17 08:00 08/03/17 08:00 08/03/17 08:00 08/03/17 08:00 08/03/17 08:00 - Medications Medications: Current Medications Sodium Chloride (Sodium Chloride 0.9%) 1,000 mls @ 1,000 mls/hr IV .Q1H ISAAC Stop: 08/04/17 06:50 Last Admin: 08/03/17 07:09 Dose: 1,000 mls/hr Sodium Chloride (Sodium Chloride 0.9%) 1,000 mls @ 150 mls/hr IV .Q6H40M ISAAC Stop: 08/04/17 07:04 Desmopressin Acetate 22 mcg/ (Sodium Chloride) 55.5 mls @ 111 mls/hr IV ONCE ONE Stop: 08/03/17 08:59 - Labs Labs: 08/03/17 05:35 08/03/17 05:35 PT 12.0 Seconds (9.8-13.1) 08/03/17 05:35 INR 1.1 (0.9-1.2) 08/03/17 05:35 APTT 38.0 Seconds (25.6-37.1) H 08/03/17 05:35
--- NOTE | 2017-08-03 10:05 | RAD ---
HISTORY: intubated COMPARISON: Comparison made with chest radiograph 12/31/2016 FINDINGS: In situ ETT the tip which lies approximately for poorly 4 cm above kamilla. LUNGS: No active pulmonary disease. PLEURA: No significant pleural effusion identified, no pneumothorax apparent. CARDIOVASCULAR: Normal. OSSEOUS STRUCTURES: No significant abnormalities. VISUALIZED UPPER ABDOMEN: Normal. OTHER FINDINGS: None. IMPRESSION: ETT as described. No acute infiltrates.
[2017-08-03 10:51] LABS: LARGE PLATELETS PRESENT; MYELOCYTE 2 % (0-0); NEUTROPHIL 76 % (42-75); TOTAL CELLS COUNTED 100
[2017-08-03 12:25] VITALS: BP 195/79; RESP 30; TEMP 98.2
[2017-08-03] MEDS ORDERED: Morphine 100 MG in Sodium Chloride 0.9% 100 ML IVPB SCH (12:45)
--- NOTE | 2017-08-03 13:24 | CP.PCM.PRO ---
Pronouncement of Note - Clinical Findings Physical Exam: No Response Verbal/Painful Stimuli, Absent Peripheral Pulses{ Carotid & Femoral}, Absent Heart & Breath Sounds, No Pupillary Light Reflex, No Corneal Reflex, Pupils Fixed & Dilated, Absence of Vital Signs - Pronouncement Time Time of Pronouncement of : 12:52 - Notifications Pronouncement Notifications: Family Notified, Atending Notified Journalism Intern Notified: Yes - Autopsy Autopsy Requested: No - [place] [id number]
[2017-08-03 14:28] VITALS: PULSE 66
--- NOTE | 2017-08-03 19:59 | HP ---
CHIEF COMPLAINT: Altered mental status. HISTORY OF PRESENT ILLNESS: This is a 72-year-old male, known case of diabetes, hypertension, history of CVA who was in acute rehab after suffering an acute left cerebral CVA. In the acute rehab unit, the patient was noted to have labored breathing and rapid response team were called where the patient was found in respiratory distress and was orally intubated and brought to emergency room and was admitted for further management. The patient is not able to provide informative history or review of systems due to his respiratory failure and medical condition. PAST MEDICAL HISTORY: Significant for hypertension, diabetes, hypothyroidism, history of recent CVA and anemia. PAST SURGICAL HISTORY: Remarkable for cataract surgery and circumcision. PERSONAL HISTORY: The patient is currently nonsmoker, nondrinker. No substance abuse. The patient according to family at home was noncompliant with diet, but denies any habit of alcohol or substance. The patient also is vegetarian. FAMILY HISTORY: Noncontributory. MEDICATIONS: The patient is on multiple medications which is as per reconciliation sheet, which was reviewed and ordered. ALLERGIES: THE PATIENT IS NOT ALLERGIC TO ANY MEDICATION. PHYSICAL EXAMINATION: GENERAL: Well-built, well-nourished, 72-year-old male, in the intensive care unit, on ventilator, not able to provide any informative history or review of system. VITAL SIGNS: Temperature 98.2, pulse of 56, respirations 18, blood pressure which was 76 from 46, last reading according to the chart is 195/79, saturation is 100%. HEENT: Pupils are fixed and dilated. No JVD. No thyromegaly. No lymphadenopathy. No signs of trauma. HEART: S1 and S2, normal and regular. No significant murmur, gallop, or rub is heard. LUNGS: Shows good bilateral air exchange. No rales or rhonchi. ABDOMEN: Soft. No organomegaly. No fluids. Bowel sounds are plus. EXTREMITIES: No edema. No calf swelling. No tenderness. No acute ischemia. CENTRAL NERVOUS SYSTEM: The patient is essentially comatose and unresponsive. DIAGNOSTIC DATA: Available diagnostic data reviewed. CAT scan of the head shows intracerebral bleed in previously ischemic area. WBC 27.8, hemoglobin 8.9, hematocrit 28.2, platelets 510. PT 12.0, PTT 38. Sodium 128, potassium 4.5, chloride 93, BUN 19, creatinine 1.2. Glucose was 342, hemoglobin A1c is 10. Lipid profile was acceptable. Chest x-ray shows ET tube in good position, there is no acute infiltrate. EKG shows normal sinus rhythm. No acute ST-T changes. IMPRESSION: Intracerebral bleed, cerebrovascular accident, hypertension, type 2 uncontrolled diabetes. PLAN: Case and plan were discussed at length with family members. DNR/DNI issues were also discussed. Neurosurgical intervention and consults were noted. At one time, the patient was apparently going to be transferred to [place], but then transfer was canceled. All the condition and prognosis discussed with the patient. The patient will evaluate the situation. Poor prognosis was explained to multiple members of the family. Plan as ordered. Case and plan was also discussed with clock repair technician. Cristopher Fried MD
--- NOTE | 2017-08-04 06:40 | PQF GENQUE ---
This form is a permanent part of the medical record 08/04/17 Dr. Fried, Would you please clarify if there is an additional diagnosis or not to go along with the respiratory findings causing the need for intubation and mechanical ventilation us. Rapid Response Team called because of sudden AMS with no response to verbal stimulus but moving upper extremities aimlessly, accompanied with apneic respiration and stridor. Had c/o headache prior . Emergent intubation performed and attached to mechanical ventilator. Clarification of your documentation is requested to better reflect the severity of illness and intensity of treatment of your patient. Indicators present [] Specify: [] [] Specify: [] [] Specify: [] [] Specify: [] Location in the medical record that reflects the above clinical findings: [] Treatment Provided: [] PHYSICIAN'S RESPONSE Based on your medical judgment of the clinical indicators outlined above please clarify the following: [] Practitioner response [] If unable to determine, please check the box, sign and date. Present On Admission (POA) Indicator: [] Present at the time of admission [] Not present at the time of admission [] Clinically Undetermined In responding to this query, please exercise your independent professional judgment. The fact that a question is asked does not imply that any particular answer is desired or expected. Thank you for your clarification on this documentation. If you have any questions please call:[phone] * Thank you, Emi Dodson RN CD[facility]
== END 2017-08-03 12:52 | DRG 64 ==
LOC: H.ER 05:19 → H.ERHOLD 05:29 → H.ICU/CCU 06:24
PROVIDERS: ADMIT Internal Medicine; ATTEND Internal Medicine
PROC: 5A1935Z Respiratory Ventilation, Less than 24 Consecutive Hours (ICD-10-PCS; principal; 2017-08-03)
DX: I61.4 Nontraumatic intracerebral hemorrhage in cerebellum (principal); J96.90 Respiratory failure, unspecified, unspecified whether with hypoxia or hypercapnia; R40.20 Unspecified coma; G91.9 Hydrocephalus, unspecified; E11.65 Type 2 diabetes mellitus with hyperglycemia; I10 Essential (primary) hypertension; E03.9 Hypothyroidism, unspecified; D50.9 Iron deficiency anemia, unspecified; D72.829 Elevated white blood cell count, unspecified; Z86.73 Personal history of transient ischemic attack (TIA), and cerebral infarction without residual deficits; Z79.02 Long term (current) use of antithrombotics/antiplatelets; Z79.83 Long term (current) use of bisphosphonates; Z91.11 Patient's noncompliance with dietary regimen